=== PATIENT | female | born 1960 | race Caucasian/White ===

== ENCOUNTER 2025-07-19 13:57 | Outpatient (REF) | payer BC, SELFPAY ==
--- NOTE | 2025-07-19 | EMG_ITS ---
LOT [id number] [facility] [id number] EMG guidance was used for bilateral cervical dystonia Botox injection to find muscles with spontaneous hyperactivity. [facility]
--- OUTSIDE RECORDS SUMMARY | 2025-07-19 15:21 | XMS_ITS | Clinical Summary ---
Author Organization [id number] Address [address] [place] [address] Phone Care Team Providers Care Satin Finisher Name Role Phone Estefanía Rodas MD Primary Care Prov ider Allergies Active Allergy Reactions Criticality Noted Date Comments Acetaminophen Rash High 06/20/2023 Cephalexin Rash Medium 03/18/2015 Dexamethasone (Pf) Anaphylaxis High 02/01/2025 Doxycycline Shortness of breath,Wheezing High 03/23/2011 Erythromycin Palpitations 02/01/2025 Latex Itching,Rash Low 05/22/2008 LOCALIZED REACTION Oxycodone Hcl Rash High 06/20/2023 Oxycodone-Acetaminophen Itching 12/03/2006 Sulfamethoxazole-Trimet hoprim Hives 06/01/2024 Medications fluticasone propionate (FLOVENT DISKUS) 50 mcg/actuation diskus inhaler Inhale 1 puff by mouth 1 (one) time each day. Active onabotulinumtoxinA (BOTOX INJ) Inject as directed. Every 91 days Active umeclidinium-vilanteroL (Anoro Ellipta) 62.5-25 mcg/actuation inhaler Inhale 1 puff by mouth 1 (one) time each day. 1 each 025 Active fluticasone propionate (FLONASE) 50 mcg/actuation nasal spray Administer 2 sprays into each nostril 1 (one) time each day. 16 g 025 2025 Active amLODIPine (NORVASC) 2.5 mg tablet Take 1 tablet (2.5 mg total) by mouth 1 (one) time each day. 90 tablet 1 025 Active levothyroxine (SYNTHROID, LEVOTHROID) 100 mcg tablet Take 1 tablet (100 mcg total) by mouth 1 (one) time each day. 90 each 1 025 2024 Active atorvastatin (LIPITOR) 80 mg tabletIndications:Coron tj artery calcification seen on CT scan,Pure hypercholesterolemia Take 1 tablet (80 mg total) by mouth 1 (one) time each day. 90 each 3 025 2025 Active methocarbamoL (ROBAXIN) 750 mg tablet Take 1 tablet (750 mg total) by mouth 3 (three) times a day if needed for muscle spasms. 30 tablet 025 Active rOPINIRole (REQUIP) 0.25 mg tabletIndications:restl ess leg syndrome Take 3 tablets (0.75 mg total) by mouth 3 (three) times a day. at bedtime 270 tablet 1 025 Active rOPINIRole (REQUIP) 0.25 mg tabletIndications:Restl ess leg syndrome Take 3 tablets (0.75 mg total) by mouth 3 (three) times a day. at bedtime 270 tablet 025 2024 Disconti nued(Reo rder) methocarbamoL (ROBAXIN) 750 mg tablet Take 1 tablet (750 mg total) by mouth 3 (three) times a day if needed for muscle spasms. 30 tablet 1 025 2024 Disconti nued(Reo rder) Active Problems Problem Noted Date Diagnosed Date Palpitations 03/09/2025 Assessment & Plan (04/22/2025 12:25 PM EDT): Palpitations continue to occur intermittently. I have reviewed with her the results of her 7-day monitor which demonstrated 16 total episodes of patient triggered events. All episodes revealed sinus rhythm. A couple of them revealed sinus tachycardia and a couple of others revealed isolated premature atrial complexes. There was no evidence of atrial fibrillation. Her Apple Watch has indicated that she has atrial fibrillation 2% or less at the time. I revealed to her that this is an indication that there is no documentation of atrial fibrillation since this accounts for the fact that she does not wear her watch 24 hours a day without the need for charging. Orders: ECG 12 lead Assessment & Plan (03/09/2025 6:20 PM EDT): Patient had profound bradycardia in the setting of an anaphylactic reaction and subsequently had tachycardia following atropine and epinephrine. She appears to be stable with a normal electrocardiogram at this time. She is wearing a 7-day monitor which will be completed later this week. I do not feel that more prolonged monitoring will likely be necessary. Orders: Ambulatory referral to Cardiology ECG 12 lead Cardiac calcification (CMS/HCC V24, CMS/HCC V28) 02/01/2025 Assessment & Plan (04/22/2025 12:25 PM EDT): The patient has coronary artery disease in the setting of a positive family history. She has been treated with aggressive secondary prevention. She has had a myriad of chest complaints in the setting of chest wall discomfort, cervical arthritis, esophageal dysmotility and known coronary artery disease. Her effort capacity appears to be worsening due to exertional breathlessness. I reviewed options for imaging studies and we chose to make arrangements for outpatient exertional stress testing with nuclear imaging. Anatomic imaging with either invasive or noninvasive studies would be reserved for a significantly abnormal stress test or ongoing unexplained symptomatology. Orders: ECG 12 lead Nuclear stress test with myocardial perfusion; Future Right lower lobe pneumonia 12/29/2024 Hyperlipidemia 10/11/2022 Assessment & Plan (04/22/2025 12:25 PM EDT): The patient appears to be tolerating high-dose atorvastatin. Ideally her LDL cholesterol should be less than 70 mg/dL. Orders: ECG 12 lead Assessment & Plan (03/09/2025 6:20 PM EDT): Patient has coronary artery calcification in the setting of a strongly positive family history for premature coronary artery disease. Her LDL cholesterol is 109 mg/dL on atorvastatin 40 mg a day. I am taking the liberty of doubling her atorvastatin to 80 mg a day. She should have a repeat lipid profile in a couple of months. I would aim for an LDL cholesterol of less than 100 mg/dL. The appropriate goal for primary prevention in the absence of vascular obstructive disease or symptoms remains somewhat controversial and somewhat argue for a lower LDL goal. Orders: atorvastatin (LIPITOR) 80 mg tablet; Take 1 tablet (80 mg total) by mouth 1 (one) time each day. Chest pressure 05/31/2022 Costochondritis 05/31/2022 Assessment & Plan (03/09/2025 6:20 PM EDT): This has been a recurrent issue. She has bilateral tenderness over several costochondral joints but tenderness is only mild and is quite tolerable. Dyspnea on exertion 05/31/2022 Assessment & Plan (04/22/2025 12:25 PM EDT): Exertional dyspnea may be multifactorial. Nuclear stress testing will be arranged in order to rule out an ischemic underpinning. Orders: ECG 12 lead Nuclear stress test with myocardial perfusion; Future Coronary artery calcification seen on CT scan Assessment & Plan (03/09/2025 6:20 PM EDT): Patient has coronary artery calcification in the setting of a strongly positive family history for premature coronary artery disease. Her LDL cholesterol is 109 mg/dL on atorvastatin 40 mg a day. I am taking the liberty of doubling her atorvastatin to 80 mg a day. She should have a repeat lipid profile in a couple of months. I would aim for an LDL cholesterol of less than 100 mg/dL. The appropriate goal for primary prevention in the absence of vascular obstructive disease or symptoms remains somewhat controversial and somewhat argue for a lower LDL goal. Orders: atorvastatin (LIPITOR) 80 mg tablet; Take 1 tablet (80 mg total) by mouth 1 (one) time each day. Pulmonary emphysema (CMS/HCC V24, CMS/HCC V28) 0 04/28/2021 Overview (09/07/2024): Seen on CXR/CT 04/17/21 Assessment & Plan (03/09/2025 6:20 PM EDT): Patient has COPD and is recuperating from a recent pneumonia. She has modest breathlessness with exertional activities but this continues to improve. I suggested that she remain patient. She tried to perform in a spin class last week and this was premature. 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 Bilateral foraminotomies stenosis at C4-5 (). Insomnia 10/26/2009 Low back pain 02/14/2009 Overview (09/07/2024): S/p surgery Dr. Rich 12/02, L5-S1 Strain of hip and thigh 06/14/2008 Overview (09/07/2024): Sprain and strain of unspecified site of hip and thigh Nonallopathic lesion of sacral region 06/14/2008 Overview (09/07/2024): IMO update Encounters Date Type Department Care Team Description 07/16/2025 Telephone Adult [facility] [address] [place] [id number] Estefanía Rodrigues MD 07/06/2025 Telephone Adult [facility] [address] [place] [address] Estefanía Rodrigues MD 05/25/2025 1:30 PM EDT Office Visit Adult [facility] [address] [place] [address] Alec Gagnon PA Hypothyroidism, unspecified type (Primary Dx); Coronary artery calcification seen on CT scan; Pure hypercholesterolemia; Pulmonary emphysema, unspecified emphysema type ([facility] V24, [facility] V28); Cervical dystonia; Need for vaccination against Streptococcus pneumoniae; Need for ttcmmjyhjh-xdppwcs-div tussis (Tdap) vaccine 05/07/2025 8:30 AM EDT Ancillary Procedure [facility] [address] [place] [phone] Cardiac calcification ([facility] V24, [facility] V28); Dyspnea on exertion 04/22/2025 11:00 AM EDT Office Visit [facility] [address] [place] [address] Felix Mcclendon MD Palpitations (Primary Dx); Mixed hyperlipidemia; Cardiac calcification ([facility] V24, [facility] V28); Dyspnea on exertion from Last 3 Months Immunizations Name Administration Dates Next Due H1N1 All Forms 08/31/2024 Influenza Quadravalent, MDCK , 0.5ml, preservative free (Flucelvax) 6mo and older 10/11/2022 Influenza Quadravalent, MDCK , 0.5ml, with preservative (Flucelvax) 6mo and older 09/01/2019 Influenza Quadrivalent, 0.5m l, preservative free (Fluarix; FluLaval; Fluzone) ages 6mo and older (Afluria) 3yo and older 08/08/2020,09/01/2019 Influenza trivalent, 0.5mL, preservative free (Fluarix; FluLaval; Fluzone) ages 6mo and older (Afluria) 3 years and older 10/24/2018,12/17/2012,08/18/2010 Influenza trivalent, with preservative (Fluzone; Afluria) 6mo and older 09/09/2021,10/24/2018,12/17/2012,2009 Pneumococcal conjugate 20 va lent (Prevnar 20, PCV 20) 2mo and older 05/25/2025 Tdap Tetanus diptheria acell ular pertussis (Boostrix; Adacel) 7yo and older 05/25/2025,02/14/2009 Surgical History Surgery Date Site/Laterality Comments OTHER SURGICAL HISTORY 10/21/01 PROCEDURE: TN LAPS VAGINAL HYSTERECTOMY UTERUS 250 GM/<; COMMENT: LAVH-fibroids APPENDECTOMY PROCEDURE: HISTORICAL APPENDECTOMY BACK SURGERY 12/02 PROCEDURE: HISTORICAL BACK SURGERY; COMMENT: L-5, S-1 TONSILLECTOMY PROCEDURE: HISTORICAL TONSILLECTOMY APPENDECTOMY PROCEDURE: TN APPENDECTOMY OTHER SURGICAL HISTORY PROCEDURE: HISTORICAL TOTAL HYSTERECTOMY W/O BSO COLONOSCOPY 04/16/12 PROCEDURE: HISTORICAL COLONOSCOPY; COMMENT: melanosis; repeat in 10 yrs Medical History Medical History Date Comments Tumors of body of u terus, unspecified as to episode of care in (654.10) 10/25 DX:Tumors of body of pregnan t uterus, unspecified as to episode of care in (654.10); COMMENT: LAVH Spotted fevers 04/30 DX:Spotted fever s; COMMENT: [place] Spotted Fever Low back pain 02/14/2009 DX:Low back pain ; COMMENT: S/p surgery Dr. 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 Diabetes insipidus (CMS/HCC V24) DX:Diabetes insipidus ([facility]); COMMENT: as per patient Emphysema lung (CMS/HCC V24, CMS/HCC V28) Family History Medical History Relation Name Comments Breast cancer Aunt maternal Ovarian cancer Aunt Other: alzheimer's Father Heart attack Mother brother-sudden on a treadmill at home Breast cancer Other Hyperlipidemia Sister 1 Relation Name Status Comments Aunt Father (Age 72) Maternal Grandfather Maternal Grandmother Mother Alive Other Alive Paternal Grandfather Paternal Grandmother Sister 1 Sister 2 Sister 3 Alive Sister 4 Alive Sister 5 Alive Social History Tobacco Use Types Packs/Day Years Used Date Smoking Tobacco: Former Cigarettes Q uit: 11/25/1985 Smokeless Tobacco: Never Tobacco Cessation:Counseling Given: Not Answered Alcohol Use Standard Drinks/Week Comments Yes 0 (1 standard drink = 0.6 oz pur e alcohol) occ when out dinner Interpersonal Safety Answer Date Record ed Physical Abuse 12/30/2024 Verbal Abuse 12/30/2024 Comments No Sex and Gender Information Value Date Recorded Sex Assigned at Female 12/29/2024 7:00 PM EST Legal Sex Female 9:58 PM EST Gender Identity Female 12/29/2024 7:00 PM EST Sexual Orientation Straight 12/29/2024 7: 00 PM EST Obstetrics History Last Filed Vital Signs Vital Sign Reading Time Taken Comments Blood Pressure 121/73 05/25/2025 1:24 PM EDT Pulse 77 05/25/2025 1:24 PM EDT Temperature 36.6 C (97.8 F) 05/25/2025 1:24 PM EDT Respiratory Rate 16 01/01/2025 11:29 AM EST Oxygen Saturation 93% 04/22/2025 10:56 AM EDT Inhaled Oxygen Concentration - - Weight 82.6 kg (182 lb) 05/25/2025 1:24 PM EDT Height 162.6 cm (5' 4 ) 05/25/2025 1:24 PM EDT Body Mass Index 31.24 05/25/2025 1:24 PM EDT Plan of Treatment Upcoming Encounters Date Type Department Care Team (Late st Contact Info) Description 09/28/2025 2:40 PM EST Office Visit [facility] [address] [place] [address] [place] [address] Jayson Hernadez NP [address] [place] [address] [address] [place] [address] Health Maintenance Due Date Last Done Comments Zoster Vaccines (1 of 2) 1980 RSV Immunization Adult Patients (1 - Risk 60-74 years 1-dose series) 2021 HIV Screening 11/03/2022 Social Influencers of Health Screening 11/03/2022 Influenza Vaccine (#1) 2025 , 10/11/2022, 09/09/2021, Additional history exists Hypertension/CHF/CAD Annual BMP Blood Test 01/01/2026 01/01/2025, 12/31/2024, 12/30/2024, Additional history exists Breast Cancer Screening 06/15/2026 06/15/2024 Cholesterol Screening (Lipid Panel) 06/16/2030 06/16/2025, 05/26/2024, 05/26/2024 Colorectal Cancer Screening: Colonoscopy 01/18/2032 01/18/2022 DTaP,Tdap,and Td Vaccines (3 - Td or Tdap) 05/25/2035 05/25/2025, 02/14/2009 Hepatitis C Screening Completed 05/20/2006 COVID-19 Vaccine Discontinued 08/30/2021, 06/2021, 02/09/2021 Depression Screening Completed 05/24/2025 Pneumococcal Vaccine: 50+ Years Completed 05/25/2025 HIB Vaccines Aged Out No longer eligi ble based on patient's age to complete this topic HPV Vaccines Aged Out No longer eligi ble based on patient's age to complete this topic Hepatitis A Vaccines Aged Out No long er eligible based on patient's age to complete this topic Hepatitis B Vaccines Aged Out No long er eligible based on patient's age to complete this topic IPV Vaccines Aged Out No longer eligi ble based on patient's age to complete this topic MMR Vaccines Aged Out No longer eligi ble based on patient's age to complete this topic Meningococcal ACWY Vaccine Aged Out N o longer eligible based on patient's age to complete this topic Meningococcal B Vaccine Aged Out No l onger eligible based on patient's age to complete this topic RSV Immunization Patients Under 20 months Aged Out No longer eligible based on patient's age to complete this topic Varicella Vaccines Aged Out No longer eligible based on patient's age to complete this topic Procedures Procedure Name Priority Date/Time Associated Diagnosis Comments TRIIODOTHYRONINE FREE Routine 06/16/2025 11:57 AM EDT Hypothyroidism, unspecified type FREE THYROXINE WITH REFLEX TO FREE TRIIODOTHYRONINE Routine 06/16/2025 11:57 AM EDT Hypothyroidism, unspecified type THYROID STIMULATING HORMONE WITH REFLEX TO FREE T4 AND FREE T3 Routine 06/16/2025 11:57 AM EDT Hypothyroidism, unspecified type LIPID PANEL WITH REFLEX TO DIRECT LDL Routine 06/16/2025 11:57 AM EDT Pure hypercholesterolemia NM EXERCISE STRESS TEST W/ MYOCARDIAL PERFUSION Routine 05/19/2025 11:08 AM EDT Cardiac calcification (CMS/HCC V24, CMS/HCC V28) Dyspnea on exertion ECG 12-LEAD Routine 04/22/2025 11:09 AM EDT Palpitations Mixed hyperlipidemia Cardiac calcification (CMS/HCC V24, CMS/HCC V28) Dyspnea on exertion BASIC METABOLIC PANEL Routine 01/01/2025 5:16 AM EST COLONOSCOPY Routine 01/18/2022 HEPATITIS C SCREENING Routine 05/20/2006 from Last 3 Months or Most Recently Relevant to Health Maintenance Results * (ABNORMAL) Thyroid stimulating hormone with reflex to free t4 and free t3 (06/16/2025 11:57 AM EDT) TSH 0.31(L) 0.40 - 4.00 mcIU/mL LAB CHEMISTRY METHOD 06/16/2025 4:42 PM EDT [facility] Blood Venous blood specimen / Unknown Venipuncture / Unknown 06/16/2025 11:57 AM EDT 06/16/2025 11:57 AM EDT Alec PARIKH LAB BLOOD ORDERABLES Final Res ult Performing Organization Address City/[facility]/ZIP Co de Phone Number [facility] [address] [place] [address], [place] [phone] * Free thyroxine with reflex to free triiodothyronine (06/16/2025 11:57 AM EDT) Free T4 1.29 0.70 - 1.80 ng/dL LAB CHEMISTRY METHOD 06/16/2025 5:15 PM EDT [facility] Blood Venous blood specimen / Unknown Venipuncture / Unknown 06/16/2025 11:57 AM EDT 06/16/2025 11:57 AM EDT Alec PARIKH LAB BLOOD ORDERABLES Final Res ult [facility] [address] [place] [address], [place] [phone] * Lipid panel with reflex to direct LDL (06/16/2025 11:57 AM EDT) Cholesterol 158 0 - 200 mg/dL LAB CHEMISTRY METHOD 06/16/2025 3:59 PM EDT [facility] Triglycerides 128 0 - 150 mg/dL LAB CHEMISTRY METHOD 06/16/2025 3:59 PM EDT [facility] HDL 75 >=40 mg/dL LAB CHEMISTRY METHOD 06/16/2025 3:59 PM EDT [facility] LDL Calculated 57 0 - 100 mg/dL LAB CHEMISTRY METHOD 06/16/2025 3:59 PM EDT [facility] VLDL Cholesterol Zev 25.6 mg/dL LAB CHEMISTRY METHOD 06/16/2025 3:59 PM EDT [facility] Non HDL Chol. (LDL+VLDL) 83 <145 mg/dL LAB CHEMISTRY METHOD 06/16/2025 3:59 PM EDT [facility] Chol/HDL Ratio 2.1 0.0 - 4.4 LAB CHEMISTRY METHOD 06/16/2025 3:59 PM EDT [facility] Blood Venous blood specimen / Unknown Venipuncture / Unknown 06/16/2025 11:57 AM EDT 06/16/2025 11:57 AM EDT Alec PARIKH LAB BLOOD ORDERABLES Final Res ult [facility] [address] [place] [address], [place] [phone] * Triiodothyronine free (06/16/2025 11:57 AM EDT) T3, Free 291 230 - 420 pcg/dL LAB CHEMISTRY METHOD 06/16/2025 6:07 PM EDT [facility] Blood Venous blood specimen / Unknown Venipuncture / Unknown 06/16/2025 11:57 AM EDT 06/16/2025 11:57 AM EDT us Alec PARIKH LAB BLOOD ORDERABLES Final Res ult [facility] [address] [place] [address], [place] [phone] * NM EXERCISE STRESS TEST W/ MYOCARDIAL PERFUSION (05/19/2025 11:08 AM EDT) Exercise/inject ion duration (min) 9 CV PACS STRESS Exercise/inject ion duration (sec) 1 CV PACS STRESS Peak SBP 158 mmHg CV PACS STRESS Peak DBP 78 mmHg CV PACS STRESS Peak HR 146 bpm CV PACS STRESS Baseline HR 82 bpm CV PACS STRESS Baseline SBP 120 mmHg CV PACS STRESS Baseline DBP 58 mmHg CV PACS STRESS Estimated workload 10.1 METS CV PACS STRESS Percent HR 93 % CV PACS STRESS Rate Pressure Product 23,068.0 mmHg*bpm CV PACS STRESS Target HR 133 bpm CV PACS STRESS O2 sat rest 96 % CV PACS STRESS Max HR Percent 92 % CV PA CS STRESS ST Depression (mm) 0 mm CV PACS STRESS TID 1.18 CV PACS STRESS Nuc Stress EF 79 % CV PAC S STRESS Nuc Rest EF 82 % CV PACS STRESS BSA 1.92 m2 CV PACS STRESS Anatomical Region Laterality Modality Nuclear Medicine 05/07/2025 9:23 AM EDT 05/07/2025 9:51 AM EDT Impressions 05/19/2025 8:28 PM EDT Normal Exercise stress test with nuclear imaging. No chest pain or EKG changes consistent with ischemia. Nuclear imaging revealed no significant perfusion defects after attenuation correction was applied. There is a normal TID ratio. Gated SPECT imaging was performed and revealed an LVEF of >70 %. Narrative 05/19/2025 8:28 PM EDT Nuclear imaging of the left ventricle shows a normal cavity size. Myocardial perfusion imaging of the left ventricle reveals no significant perfusion defects after CT attenuation correction was applied to the study. Gated SPECT imaging was performed which demonstrated normal left ventricular systolic function. The calculated LVEF is >70 %. TID ratio is normal. There was left coronary artery calcification noted on CT scan. Stress Findings Total stress time was 9 min and 1 sec. Stress Function Comments Stress ejection fraction is 79%. Rest Function Comments Resting ejection fraction was 82%. us Felix Mcclendon MD CV STRESS PROCEDURES Final Res ult * ECG 12 lead (04/22/2025 11:09 AM EDT) [facility] Ventricular Rate ECG 73 BPM GEMUSE Atrial Rate 73 BPM GEMUSE P-R Interval 138 ms GEMUSE QRS Duration 72 ms GEMUSE Q-T Interval 396 ms GEMUSE QTc 436 ms GEMUSE P Wave [place] 63 degrees GEMUSE R [place] 11 degrees GEMUSE T [place] 28 degrees GEMUSE ECG Interpretation Normal sinus rhythm Normal ECG When compared with ECG of 09-MAR-2025 16:00, No significant change was found Confirmed by FELIX MCCLENDON ([id number]) on 04/22/2025 11:20:11 AM GEMUSE 04/22/2025 11:0 9 AM EDT 04/22/2025 11:20 AM EDT us Felix Mcclendon MD ECG ORDERABLES Final Result GEMUSE * (ABNORMAL) Basic metabolic panel (01/01/2025 5:16 AM EST) [facility] Sodium 136 133 - 145 mmol/L LAB CHEMISTRY METHOD 01/01/2025 6:24 AM EST [facility] Potassium 4.5 3.5 - 5.5 mmol/L LAB CHEMISTRY METHOD 01/01/2025 6:24 AM EST [facility] Chloride 104 96 - 110 mmol/L LAB CHEMISTRY METHOD 01/01/2025 6:24 AM EST [facility] CO2 28 21 - 32 mmol/L LAB CHEMISTRY METHOD 01/01/2025 6:24 AM EST [facility] Anion Gap 4 3 - 11 LAB CHEMISTRY METHOD 01/01/2025 6:24 AM EST [facility] Glucose 170(H) 70 - 100 mg/dL LAB CHEMISTRY METHOD 01/01/2025 6:24 AM [facility] BUN 18 5 - 25 mg/dL LAB CHEMISTRY METHOD 01/01/2025 6:24 AM [facility] Creatinine 0.82 0.50 - 1.10 mg/dL LAB CHEMISTRY METHOD 01/01/2025 6:24 AM EST [facility] eGFR 80 >=60 mL/min/1. 73m2 LAB CHEMISTRY METHOD 01/01/2025 6:24 AM [facility] Comment:Calculation based on the Chronic Kidney Disease Epidemiology Collaboration (CKD-EPI) equation refit without adjustment for race. BUN/Creatinine Ratio 22.0 LAB CHEMISTRY METHOD 01/01/2025 6:24 AM [facility] Calcium 8.8 8.5 - 10.5 mg/dL LAB CHEMISTRY METHOD 01/01/2025 6:24 AM [facility] Blood Venous blood specimen / Unknown Venipuncture / Unknown 01/01/2025 5:16 AM EST 01/01/2025 5:40 AM EST Allyssa Dover NP LAB BLOOD ORDERABLES Final Resul t [facility] [address] [place] [address], * Colonoscopy (01/18/2022) Colonoscopy No Interpretation , Abstracted Comment:Reason not specified - EGD/colonoscopy. 5 mm polyp in the ascending colon. Melanosis coli. Dr. ZEV Felipe Anatomical Region Laterality Modality Other Historical Provider HEALTH MAINTENANCE Final Result * Hepatitis C Screening (05/20/2006) Hepatitis C Screening Abstracted us Historical Provider HEALTH MAINTENANCE Final Result from Last 3 Months or Most Recently Relevant to Health Maintenance Additional Health Concerns Infection Onset Date Last Indicated Parainfluenza Virus 12/30/2024 12/30/2024 Insurance [facility] Advance Directives * Full Code - Default (Latest Code Status on File) Date Activated Date Inactivated Comments 12/29/2024 11:56 PM 01/01/2025 2:27 PM This is order is used when code status has not been discussed with the patient, or code status is otherwise unknown/unconfirmed To update the patient's code status, place a code status order. Do not modify or discontinue any currently active code status orders. Care Teams Satin Finisher Relationship Specialty Start Date End Date Estefanía Rodas MD [address] [place] [id number] PCP - General 01/04/11
--- OUTSIDE RECORDS SUMMARY | 2025-07-19 15:21 | XMS_ITS | Clinical Summary ---
Author Organization [facility] Address [address] [place] [id number] Phone Care Team Providers Care Rotary Furnace Operator Name Role Phone Estefanía Rodas MD Primary Care Pr ovider Social History Tobacco Use Types Packs/Day Years Used Date Smoking Tobacco: Never Education Answer Date Recorded Are you interested in more education? Not on gerard e 03/22/2023 Are you concerned about learning? Not on file 03/22/2023 No 03/22/2023 No 03/22/2023 Digital Access Answer Date Recorded No 04/22/2023 No 04/22/2023 No 04/22/2023 Reliable internet access at home? Not on file 04/22/2023 Device with a working camera? Not on file Comments Unknown Sex and Gender Information Value Date Recorded Sex Assigned at Not on file Legal Sex Female 10:16 AM EST Gender Identity Not on file Sexual Orientation Not on file Last Filed Vital Signs Vital Sign Reading Time Taken Comments Blood Pressure 140/72 12/09/2013 1:04 PM EST Pulse 56 12/09/2013 1:04 PM EST Temperature - - Respiratory Rate - - Oxygen Saturation - - Inhaled Oxygen Concentration - - Weight 61.9 kg (136 lb 8 oz) 12/09/2013 1:04 PM EST Height 162.6 cm (5' 4 ) 12/09/2013 1:04 PM EST Body Mass Index 23.43 12/09/2013 1:04 PM EST Plan of Treatment Health Maintenance Due Date Last Done Comments LIPID PANEL 1961 DEPRESSION SCREENING 1973 SMOKING Hx and SMOKELESS TOBACCO SCREENING 1974 HEPATITIS C SCREENING 1979 HIV ONE-TIME SCREENING (18-6 5 YEARS) 1979 PAP SMEAR 1982 MAMMOGRAM 2001 COLOGUARD 2006 COLONOSCOPY 2006 COLORECTAL CANCER SCREENING 2006 FIT TEST 2006 FOBT 2006 SIGMOIDOSCOPY 2006 VIRTUAL COLONOSCOPY 2006 PNEUMOCOCCAL VACCINES (50+ years) (1 of 1 - PCV) 2011 ZOSTER VACCINES (1 of 2) 2011 Adult Td,Tdap Booster 02/14/2019 02/14/2009 COVID-19 VACCINE ( - 2023-2 5 season) 2024 08/30/2021, 03/02/2021, 02/09/2021 RSV VACCINE (1 - 1-dose 75+ series) 2036 HEPATITIS A VACCINES Aged Out No long er eligible based on patient's age to complete this topic HIB VACCINES Aged Out No longer eligi ble based on patient's age to complete this topic MENINGOCOCCAL VACCINES (ACWY) Aged Out No longer eligible based on patient's age to complete this topic MENINGOCOCCAL VACCINES (B) Aged Out N o longer eligible based on patient's age to complete this topic Medical Devices Not on file [facility] [place] [address] [place] [address] [place] [id number] [place] [id number] [address] [place] [address] HMO POS Care Teams Rotary Furnace Operator Relationship Specialty Start Date End Date Estefanía Rodas MD [address] [place] [address] PCP - General 03/31/15 Additional Source Comments The information contained in this document represents components of the legal health record. It is not the complete legal health record.[facility]
--- OUTSIDE RECORDS SUMMARY | 2025-07-19 15:21 | XMS_ITS ---
Author Name [facility] Organization Unknown Care Team Organization Name Specialty Phone Email Start Date End [facility] KASSANDRA ANGELO Primary Care 10/02/2022 07/13/2024
--- OUTSIDE RECORDS SUMMARY | 2025-07-19 15:21 | XMS_ITS | Encounter Summary ---
Author Organization [facility] Address [address] [place] [address] Care Team Providers Care Dehydrator Operator Name Role Phone Estefanía Rodas MD Primary Care Prov ider Reason for Visit * Reason Onset Date Comments Medication Problem 07/16/2025 Encounter Details Date Type Department Care Team ([facility] st Contact Info) Description 07/16/2025 Telephone Adult Medicine - [place] [address] [place] [phone] Estefanía Rodas MD [address] [place] [address] Social History Tobacco Use Types Packs/Day Years Used Date Smoking Tobacco: Former Cigarettes Q uit: 11/25/1985 Smokeless Tobacco: Never Alcohol Use Standard Drinks/Week Comments Yes 0 [...] Orientation Straight 12/29/2024 7: 00 PM EST documented as of this encounter Progress Notes * Samantha Mcintosh LPN - 07/19/2025 10:56 AM EDT Pharmacy notified * Estefanía Rodas MD - 07/16/2025 4:56 PM EDT I think it should be 3 tablets at nighttime 0.75 mg nightly * Samantha Mcintosh LPN - 07/16/2025 4:43 PM EDT Please review message regarding pharmacy call on Requip Should it be TID or at HS (Has been written the same way since 08/26/24) * Valerio Stanton - 07/16/2025 3:31 PM EDT Medication Problem: What is the name of the medication patient is having a problem with?: rOPINIRole (REQUIP) 0.25 mg tablet What is the problem?: Calling to clarify directions, states to take 3 times daily. And then it states at bedtime. Who is calling about the problem? : A pharmacist: Pharmacy: [facility] Pharmacist Name: [facility] Is this a NEW medication?: no How long has the patient been taking this medication? Who prescribed this medication for the patient? Who is patients PCP?: Estefanía Rodas MD Payor: [facility] / Plan: [facility] HMO / Product Type: *No Product type* / documented in this encounter Plan of Treatment Upcoming Encounters Date Type Department Care Team (Late st Contact Info) Description 09/28/2025 2:40 PM EST Office Visit [facility] [address] [place] [address] Dr [address] [place] [phone] Jayson Hernadez NP [address] [place] [address] Dr [address] [place] [address] documented as of this encounter Visit Diagnoses Not on filedocumented in this encounter Additional Health Concerns Infection Onset Date Last Indicated Resolved Time Parainfluenza Virus 12/30/2024 12/30/2024 Assessment Noted Time PHQ-9 Depression Total Score: 0 05/24/20 25 6:19 PM EDT documented as of this encounter Care Teams Dehydrator Operator Relationship Specialty Start Date End Date Estefanía Rodas MD [address] [place] [id number] PCP - General 01/04/11 documented as of this encounter
--- OUTSIDE RECORDS SUMMARY | 2025-07-19 15:21 | XMS_ITS | Encounter Summary ---
Author Organization [facility] Address [address] [place] [address] Care Team Providers Care Manager Float Name Role Phone Estefanía Rodas MD Primary Care Prov ider Reason for Referral * Consultation (Routine) - Closed Specialty Diagnoses / Procedures Referred By Maggy valdovinos Referred To Contact Neurology Diagnoses Cervical dystonia Estefanía Rodas MD [address] [place], [place] Phone: tel: fax: Sly Moore MD [address] [place] [address] [place] [address] Phone: tel: fax: Referral ID Status Reason Start Date Expiration Date V isits Requested Visits Authorized [id number] Closed Specialty Services Required 07/06/2025 07/06/2026 6 6 Reason for Visit * Reason Onset Date Comments Referral 07/06/2025 Neurology Insura nce Referral Encounter Details Date Type Department Care Team ([facility] st Contact Info) Description 07/06/2025 Telephone Adult Medicine - [place] [address] [place] [phone] Estefanía Rodas MD [address] [place], [place] Social History Tobacco Use Types Packs/Day Years [...] as of this encounter Progress Notes * Randa Rodriguez - 07/06/2025 10:29 AM EDT What insurance does the patient have today? [facility]: [email or web address]@ Referrals cannot be processed if the insurance is not accurate. If the insurance listed above is NO BILLING INFORMATION FOUND FOR THIS ENCOUNTER then the patients correct insurance must be obtainedand registered in [facility] or their referral can not be processed. Name of person calling to request this referral? Fax -[facility] Referred To Provider (Include first and last name): Sly Moore NPI (if known): [id number] Order/Specialty requested neurology Chief Complaint (Note: This is not a body part or a procedure): G24.3 cervical dystonia Has the patient seen provider for this problem/Dx before? Referred To Provider Address: Referred To Provider Referred To Provider Does patient have an appointment scheduled?: yes If yes, what is the date of the appointment?: 07/14/25 Is this a retro request? no Number of visits requested: 6 Is this appointment related to: MVA or worker compensation? no documented in this encounter Plan of Treatment Upcoming Encounters Date Type Department Care Team (Late st Contact Info) Description 09/28/2025 2:40 PM EST Office Visit [facility] [address] [place] [address] [place] [phone] Jayson Hernadez NP [address] [place] [address] Dr [address] [place] [address] Scheduled Referrals Name Type Priority Associated Diagnoses Order Schedule Ambulatory referral to Neurology Outpatient Referral Routine Cervical dystonia Expected: 07/06/2025, Expires: 07/06/2026 documented as of this encounter Visit Diagnoses Diagnosis Cervical dystonia- Primary Spasmodic torticollis documented in this encounter Additional Health Concerns Infection Onset Date Last Indicated Resolved Time Parainfluenza Virus 12/30/2024 12/30/2024 Assessment Noted Time PHQ-9 Depression Total Score: 0 05/24/20 25 6:19 PM EDT documented as of this encounter Care Teams Manager Float Relationship Specialty Start Date End Date Estefanía Rodas MD [address] [place] [id number] PCP - General 01/04/11 documented as of this encounter
== END 2025-07-19 13:58 | disposition home or self-care (01) ==
LOC: HO.NEURO 13:57
PROVIDERS: PCP Internal Medicine; Visit Provider Psychiatry & Neurology Neurology
DX: G24.3 Spasmodic torticollis (principal)
CPT/HCPCS: 64616; 95874

== ENCOUNTER → 2025-07-19 14:01 | Outpatient (BNV) | payer BC, SELFPAY | PROVIDERS: PCP Internal Medicine; Visit Provider Psychiatry & Neurology Neurology | DX: G24.3 Spasmodic torticollis (principal) | CPT/HCPCS: 64616; 95874 ==